=== PATIENT | male | born 1965 | race Caucasian/White ===

== ENCOUNTER 2019-12-13 20:17 | Observation (INO) ==
[2019-12-13 21:45] LABS: Calcium 6.9 mg/dL (8.6-10.3); Potassium 4.1 mEq/L (3.5-5.1)
[2019-12-13] MEDS ORDERED: Calcium Gluconate 1gm/50mL 1 GM/50 ML BAG IVPB SCH ×2 (22:30→23:30)
[2019-12-13] MEDS ORDERED: traZODone 50 MG TABLET PO PRN (23:11)
[2019-12-13] MEDS ORDERED: Naloxone 0.4 MG/ML INJ IVP PRN (23:11)
[2019-12-13] MEDS ORDERED: *HR* FentaNYL PATCH 25 MCG PATCH TD SCH ×2 (23:11→23:30)
[2019-12-13] MEDS ORDERED: *HR* FentaNYL PATCH 100 MCG PATCH TD SCH (23:30)
[2019-12-13] MEDS: Ondansetron ODT 4 MG TAB.RAPDIS SL SCH (23:45)
[2019-12-14] MEDS ORDERED: TPN IVP SCH (00:30)
[2019-12-14] MEDS ORDERED: [UNRECOGNIZED DRUG - NUTRITION] MC ONE (00:45)
[2019-12-14] MEDS: Calcium Gluconate 1gm/50mL 1 GM/50 ML BAG IVPB SCH ×2 (03:20→04:33)
[2019-12-14] MEDS: Ondansetron ODT 4 MG TAB.RAPDIS SL SCH ×2 (04:31→13:25)
[2019-12-14 07:57] LABS: Calcium 8.4 mg/dL (8.6-10.3); Magnesium 2.8 mg/dL (1.6-2.6); Potassium 4.4 mEq/L (3.5-5.1)
[2019-12-14] MEDS: Diphenoxylate/Atropine 1 TAB TABLET PO SCH ×2 (08:22→13:26)
[2019-12-14] MEDS: Pregabalin 50 MG CAPSULE PO SCH ×2 (08:23→13:25)
[2019-12-14] MEDS ORDERED: Venlafaxine XR (24 HR) 150 MG CAP.ER.24H PO SCH (09:00)
[2019-12-14] MEDS ORDERED: TEDUGLUTIDE 5 MG SQ SCH (09:00)
[2019-12-14] MEDS ORDERED: Cholecalciferol (D-3) 1,000 UNIT (25MCG) TABLET PO SCH (09:00)
[2019-12-14] MEDS ORDERED: Venlafaxine XR (24 HR) 37.5 MG CAP.ER.24H PO SCH (09:00)
[2019-12-14] MEDS ORDERED: D10% in Water 500 ML IVC PRN (09:57)
[2019-12-14] MEDS: *HR* Codeine Sulfate 30 MG TABLET PO SCH ×2 (10:55→13:30)
[2019-12-14 11:58] VITALS: BP 111/79
[2019-12-14 14:49] LABS: Calcium 7.9 mg/dL (8.6-10.3); Potassium 4.1 mEq/L (3.5-5.1)
[2019-12-14] MEDS ORDERED: Clinimix E 5%-20% SOLUTION 2,000 ML with MVI, adult with vitamin K 10 ML IVC SCH (17:00)
== END 2019-12-14 16:26 | disposition home or self-care (01) ==
LOC: EMEROOPIK 20:17 → INPPIK 20:17
PROVIDERS: ADMIT Internal Medicine; ATTEND Internal Medicine